=== PATIENT | male | born 1935 | race Caucasian/White ===

== ENCOUNTER 2018-11-12 13:04 | Inpatient (IN) | payer MEDICARE, OTHER ==
[~2018-11-12] VITALS: Ht 175.3 cm; Wt 90.7 kg
[~2018-11-12 13:04] MED LIST: CARVEDILOL3.125 MG ORAL; IBUPROFEN600 MG ORAL
--- NOTE | 2018-11-12 13:04 | NUR ---
ED Nurse Note: Patient brought in by ambulance from home due to unwitnessed fall/ syncope. patient presents with no obvious injury. Patient is alert/oriented x 3, confused. patient reports hx of DM, old stroke, dementia, but non-compliant with medications. patient's neighbor reports that patient uses cane at home, patient is forgetful. patient reports he has a caregiver that comes mostly everyday.
[2018-11-12 13:09] VITALS: BP 128/80
--- NOTE | 2018-11-12 13:14 | Emergency Room Report ---
History of Present Illness General Chief Complaint: Syncope Source: Patient, EMS Present Illness HPI Patient presents with reports of syncopal episode Patient himself is a poor historian does not recall how he was found on the floor does not recall feeling lightheaded A residential leasing manager of the facility that he lives in found the patient on the ground and presents were summoned patient denies any chest pain denies any vomiting or diarrhea History of present illness is limited secondary to the patient's mental status On further questioning he does report some discomfort to the right knee Allergies: Coded Allergies: No Known Allergies (Unverified , 11/12/18) Patient History Past Medical History: see triage record Pertinent Family History: none Reviewed Nursing Documentation: PMH: Agreed; PSxH: Agreed Nursing Documentation-PMH Past Medical History: No History, Except For Hx Cardiac Problems: Yes Hx Diabetes: Yes Hx Cerebrovascular Accident: Yes Review of Systems All Other Systems: limited - Other than the ones mentioned in the history of present illness all others are reviewed however they do stay limited due to the patient's mental status Physical Exam Vital Signs Date Time Temp Pulse Resp B/P (MAP) Pulse Ox O2 Delivery O2 Flow Rate FiO2 11/12/18 12:52 98.2 62 18 138/77 97 Room Air Sp02 EP Interpretation: reviewed, normal General Appearance: other - Appears disheveled Head: normocephalic, atraumatic Eyes: bilateral eye PERRL, bilateral eye EOMI ENT: hearing grossly normal, normal voice, dry mucus membranes Neck: supple, no meningismus Respiratory: no retraction, no accessory muscle use, crackles - Bilaterally Cardiovascular #1: regular rate, rhythm Gastrointestinal: non tender, soft, other - Soft reducible umbilical hernia Musculoskeletal: swelling - Right lower shimmery including the calf and ankle region, tenderness palpable to the ankle any as well Neurologic: responsive - Patient is oriented to his name, however is confused about the time of the date is unclear how he presented to the hospital Skin: other - Poor turgor, swelling to the right leg Lymphatic: no adenopathy Medical Decision Making Diagnostic Impression: Primary Impression: Syncope ER Course Patient is a fairly complex patient with multiple differential to consideration including but not limited to cardiac cardiopulmonary and vascular emergencies Patient appears somewhat disoriented Disheveled IV hydration is provided CT head and other imaging did not show any obvious acute pathology Patient at this time is admitted for further care Labs Test 11/12/18 13:30 11/12/18 18:00 11/13/18 06:44 White Blood Count 8.4 K/UL (4.8-10.8) 7.7 K/UL (4.8-10.8) Red Blood Count 4.43 M/UL (4.70-6.10) 4.06 M/UL (4.70-6.10) Hemoglobin 14.3 G/DL (14.2-18.0) 13.2 G/DL (14.2-18.0) Hematocrit 42.0 % (42.0-52.0) 38.5 % (42.0-52.0) Mean Corpuscular Volume 95 FL (80-99) 95 FL (80-99) Mean Corpuscular Hemoglobin 32.3 PG (27.0-31.0) 32.5 PG (27.0-31.0) Mean Corpuscular Hemoglobin Concent 34.2 G/DL (32.0-36.0) 34.3 G/DL (32.0-36.0) Red Cell Distribution Width 12.4 % (11.6-14.8) 12.6 % (11.6-14.8) Platelet Count 270 K/UL (150-450) 282 K/UL (150-450) Mean Platelet Volume 5.5 FL (6.5-10.1) 5.9 FL (6.5-10.1) Neutrophils (%) (Auto) 77.6 % (45.0-75.0) 78.0 % (45.0-75.0) Lymphocytes (%) (Auto) 13.5 % (20.0-45.0) 13.7 % (20.0-45.0) Monocytes (%) (Auto) 7.4 % (1.0-10.0) 6.1 % (1.0-10.0) Eosinophils (%) (Auto) 1.0 % (0.0-3.0) 1.5 % (0.0-3.0) Basophils (%) (Auto) 0.6 % (0.0-2.0) 0.6 % (0.0-2.0) Prothrombin Time 10.7 SEC (9.30-11.50) Prothromb Time International Ratio 1.0 (0.9-1.1) Activated Partial Thromboplast Time 27 SEC (23-33) Sodium Level 139 MMOL/L (136-145) 142 MMOL/L (136-145) Potassium Level 4.2 MMOL/L (3.5-5.1) 3.7 MMOL/L (3.5-5.1) Chloride Level 103 MMOL/L (98-107) 108 MMOL/L (98-107) Carbon Dioxide Level 23 MMOL/L (21-32) 25 MMOL/L (21-32) Anion Gap 13 mmol/L (5-15) 10 mmol/L (5-15) Blood Urea Nitrogen 29 mg/dL (7-18) 30 mg/dL (7-18) Creatinine 1.1 MG/DL (0.55-1.30) 1.1 MG/DL (0.55-1.30) Estimat Glomerular Filtration Rate mL/min (>60) mL/min (>60) Glucose Level 108 MG/DL (74-106) 141 MG/DL (74-106) Calcium Level 9.5 MG/DL (8.5-10.1) 9.1 MG/DL (8.5-10.1) Total Bilirubin 1.5 MG/DL (0.2-1.0) Direct Bilirubin 0.2 MG/DL (0.0-0.3) Aspartate Amino Transf (AST/SGOT) 30 U/L (15-37) Alanine Aminotransferase (ALT/SGPT) 14 U/L (12-78) Alkaline Phosphatase 91 U/L (46-116) Total Creatine Kinase 404 U/L (26-308) Creatine Kinase MB 3.0 NG/ML (0.0-3.6) Creatine Kinase MB Relative Index 0.7 Troponin I 0.000 ng/mL (0.000-0.056) Pro-B-Type Natriuretic Peptide 331 pg/mL (0-125) Total Protein 7.6 G/DL (6.4-8.2) Albumin 3.5 G/DL (3.4-5.0) Globulin 4.1 g/dL Albumin/Globulin Ratio 0.9 (1.0-2.7) Lipase 349 U/L (73-393) Urine Color Yellow Urine Appearance Clear Urine pH 5 (4.5-8.0) Urine Specific [place] 1.020 (1.005-1.035) Urine Protein 3+ (NEGATIVE) Urine Glucose (UA) Negative (NEGATIVE) Urine Ketones 3+ (NEGATIVE) Urine Blood Negative (NEGATIVE) Urine Nitrite Negative (NEGATIVE) Urine Bilirubin Negative (NEGATIVE) Urine Urobilinogen Normal MG/DL (0.0-1.0) Urine Leukocyte Esterase Negative (NEGATIVE) Urine RBC 0-2 /HPF (0 - 0) Urine WBC 0-2 /HPF (0 - 0) Urine Squamous Epithelial Cells None /LPF (NONE/OCC) Urine Bacteria Few /HPF (NONE) Triglycerides Level 122 MG/DL (30-150) Cholesterol Level 213 MG/DL (< 200) LDL Cholesterol 145 mg/dL (<100) HDL Cholesterol 50 MG/DL (40-60) Cholesterol/HDL Ratio 4.3 (3.3-4.4) Prostate Specific Antigen 1.20 ng/mL (0.13-4.0) Thyroid Stimulating Hormone (TSH) 1.013 uiU/mL (0.358-3.740) EKG Diagnostic Results Rate: normal Rhythm: NSR ST Segments: other - Nonspecific ST, T wave changes Rhythm Strip Diag. Results EP Interpretation: yes Rate: 60 Rhythm: NSR, no PVC's, no ectopy Chest X-Ray Diagnostic Results Chest X-Ray Diagnostic Results : Chest X-Ray Ordered: Yes # of Views/Limited/Complete: 1 View Indication: Other - syncope EP Interpretation: Yes Interpretation: no consolidation, no effusion, no pneumothorax, other - Tortuous aorta wiped mediastinum Impression: Other - Tortuous aorta, borderline enlarged mediastinum Electronically Signed by: Jose Funk, DO Other X-Ray Diagnostic Results Other X-Ray Diagnostic Results #1: X-Ray ordered: Right ankle # of Views/Limited Vs Complete: 3 View Indication: Pain EP Interpretation: Yes Other X-Ray Diagnostic Results #2: X-Ray ordered: Right knee # of Views/Limited Vs Complete: 3 View Indication: Pain EP Interpretation: Yes CT/MRI/US Diagnostic Results CT/MRI/US Diagnostic Results : Impression CT headImpression: Chronic and age-related changes, as described Negative for acute intracranial bleed or mass effect Last Vital Signs Date Time Temp Pulse Resp B/P (MAP) Pulse Ox O2 Delivery O2 Flow Rate FiO2 11/12/18 12:52 98.2 62 18 138/77 97 Room Air Status: improved Disposition: ADMITTED INPATIENT Condition: Serious Jose Funk DO Nov 12, 2018 13:14
[2018-11-12 13:44] LABS: BASOPHILS % (AUTO) 0.6 % (0.0-2.0); HEMOGLOBIN 14.3 G/DL (14.2-18.0); LYMPHOCYTES % (AUTO) 13.5 % (20.0-45.0); MEAN CORPUSCULAR VOLUME 95 FL (80-99); MONOCYTES % (AUTO) 7.4 % (1.0-10.0); NEUTROPHILS % (AUTO) 77.6 % (45.0-75.0); PLATELET COUNT 270 K/UL (150-450); RED BLOOD COUNT 4.43 M/UL (4.70-6.10); RED CELL DISTRIBUTION WIDTH 12.4 % (11.6-14.8); WHITE BLOOD COUNT 8.4 K/UL (4.8-10.8)
[2018-11-12 14:01] LABS: ANION GAP 13 mmol/L (5-15); BLOOD UREA NITROGEN 29 mg/dL (7-18); CALCIUM 9.5 MG/DL (8.5-10.1); CARBON DIOXIDE 23 MMOL/L (21-32); CHLORIDE 103 MMOL/L (98-107); CREATININE 1.1 MG/DL (0.55-1.30); POTASSIUM 4.2 MMOL/L (3.5-5.1); SODIUM 139 MMOL/L (136-145)
[2018-11-12 14:14] LABS: ALANINE AMINOTRANSFERASE 14 U/L (12-78); ALBUMIN 3.5 G/DL (3.4-5.0); ALBUMIN/GLOBULIN RATIO 0.9 (1.0-2.7); ALKALINE PHOSPHATASE 91 U/L (46-116); ASPARTATE AMINO TRANSFERASE 30 U/L (15-37); BILIRUBIN,DIRECT 0.2 MG/DL (0.0-0.3); BILIRUBIN,TOTAL 1.5 MG/DL (0.2-1.0); CREATINE KINASE 404 U/L (26-308)
--- NOTE | 2018-11-12 14:25 | NUR ---
ED Nurse Note: patient went down for CT
--- NOTE | 2018-11-12 14:43 | Diagnostic Imaging Report ---
Indication: Pain, trauma Technique: One view of the pelvis Comparison: none Findings: No definite acute fractures or dislocations. The right femoral neck is not well-visualized, however. There is degenerative narrowing of the right hip joint space. Left hip joint space is preserved. There are degenerative changes of the lumbosacral junction and of the bilateral sacroiliac joints. Impression: No definite acute bony trauma. However, right hip is not well-visualized, and dedicated hip radiograph should be considered if clinically concerned. Note that in elderly osteoporotic patients, nondisplaced hip and pelvic fractures can easily be occult and cross-sectional imaging should be considered if there is high clinical suspicion Degenerative changes, as described.
--- NOTE | 2018-11-12 14:47 | NUR ---
ED Nurse Note: educated patient that urine sample is needed, patient verbalised understanding.
--- NOTE | 2018-11-12 14:56 | Diagnostic Imaging Report ---
Indication: Pain, trauma Technique: 3 views of the right ankle Comparison: none Findings: There is severe degenerative narrowing of the ankle joint. No acute fractures. No dislocations. There is evidence of plain is deformity. There are fairly extensive soft tissue calcifications noted. Impression: Degenerative changes as described. No definite acute bony trauma
--- NOTE | 2018-11-12 14:57 | Diagnostic Imaging Report ---
Indication: Chest pain, trauma Technique: One view of the chest Comparison: 10/18/2009 Findings: The lungs and pleural spaces are clear. The heart size is upper limits normal. The aorta is tortuous and calcified. There is no significant interim change Impression: No acute process
--- NOTE | 2018-11-12 14:59 | Diagnostic Imaging Report ---
Indication: Right knee pain Technique: 3 views of the right knee Comparison: None Findings: There is degenerative narrowing of the medial lateral joint compartments no acute fractures. No dislocations. No suprapatellar effusion. There are vascular calcifications Impression: Degenerative changes. No acute bony trauma
--- NOTE | 2018-11-12 15:01 | Diagnostic Imaging Report ---
Indications: Syncopal episode, head trauma Technique: Spiral acquisitions obtained through the brain. Angled axial and coronal 5 x 5 mm slices were reconstructed. Total dose length product 1404.24 mGycm. CTDI vol(s) 70.38 mGy. Dose reduction achieved using automated exposure control Comparison: Brain MRI dated 10/18/2009. No prior brain CTs Findings: There is age-related enlargement of the ventricles and extra axial CSF spaces. There is periventricular deep white matter low-attenuation, consistent with chronic deep white matter ischemic change. No acute intracranial hemorrhage or edema, mass effect, nor midline shift. Otherwise normal pelayo-white differentiation. There is minimal right maxillary sinus mucosal disease. There is evidence of bilateral sinus surgery. Mucosal disease is also seen within the ethmoid sinuses, and there is a polyp versus mucous retention cyst in the left sphenoid sinus. There is evidence of prior bilateral cataract surgery. The calvarium is intact. The mastoids are clear Impression: Chronic and age-related changes, as described Negative for acute intracranial bleed or mass effect The CT scanner at [facility] is accredited by the [employer] and the scans are performed using protocols designed to limit radiation exposure to as low as reasonably achievable to attain images of sufficient resolution adequate for diagnostic evaluation.
--- NOTE | 2018-11-12 15:11 | History & Physical ---
History and Physical History & Physicial dict syncope found down, unknown duration, mild rhabdomyolysis HTN CKD 2 borderline DM, diet controlled mild dementia ANNE morbid obesity OA L side weakness due to hx CVA NKA plan: tele troponins echo CDS PT eval placement or multimedia teacher help Robbie Mccall MD Nov 12, 2018 15:11
--- NOTE | 2018-11-12 15:19 | NUR ---
ED Nurse Note: Dr. Montilla ok for the patient to go up without giving urine sample at this time, patient is not voiding and refused straight cath.
--- NOTE | 2018-11-12 15:45 | NUR ---
ED Nurse Note: report given to Melchor MARTÍNEZ
--- NOTE | 2018-11-12 16:19 | NUR ---
ED Nurse Note: Endorsed Melchor that patient's UA needs to be collected
--- NOTE | 2018-11-12 16:20 | NUR ---
ED Nurse Note: patient was transferred to with all his belongings, endorsed to Melchor MARTÍNEZ.
--- NOTE | 2018-11-12 16:57 | NUR ---
NURSE NOTES: RECEIVED PT AWAKE ALERT, AOX2, FORGETFUL, [facility] HEALED SCAR CALLED AND SPOKE W DR GREGORIO, RECEIVED ADMISSION ORDERS, ENTERED. MD MADE AWARE OF SYSTOLIC , NO NEW ORDER JUST MONITOR FOR NOW. BED IN LOWEST POSITION, LOCKED. WALLET TAKEN HOME BY STUART EMMANUEL
--- NOTE | 2018-11-12 18:00 | History and Physical Report ---
DATE OF ADMISSION: 11/12/2018 CHIEF COMPLAINT: Syncope. HISTORY OF PRESENT ILLNESS: The patient apparently was found down by his operations manager. He has no recollection of falling and does not recall how long he was on the floor. He has no complaints of chest pain or shortness of breath. He has no palpitations or headache. He has no discomfort other than some knee and ankle pain due to chronic arthritis. PAST MEDICAL HISTORY: The records at [facility] were reviewed. The patient is a poor historian. He has a history of borderline hypertension, borderline diabetes, mild chronic kidney disease, mild dementia, sleep apnea, not on treatment, morbid obesity, and anemia. He is felt by his primary physician and family to be not competent to make decisions, but the family has refused to place him in assisted living and the patient has refused. MEDICATIONS: Plavix. He does not use CPAP. ALLERGIES: None. SOCIAL HISTORY: He is a past smoker. He does not drink excessively or use illicit drugs. He lives independently and has a part-time caregiver and friends in his apartment building. REVIEW OF SYSTEMS: He is overweight. He had skin cancer in the past. He has no history of cardiac disease. He had a past stroke many years ago with mild left-sided weakness. He has no shortness of breath or chest pain. He has no nausea, vomiting, or diarrhea. PHYSICAL EXAMINATION: GENERAL: The patient is alert and responds appropriately. He is oriented to place. He thought the date was November 2083. He knows the President and knows why he is here. HEENT: The head is normocephalic with no signs of trauma. NECK: No jugular vein distention or lymphadenopathy. The carotids are 2+ without bruit. CARDIAC: Rhythm is regular without murmur or gallop. ABDOMEN: Soft and nontender. Liver and spleen are not enlarged. EXTREMITIES: No clubbing, cyanosis, or edema. NEUROLOGIC: He is able to move all extremities, although there is mild left-sided weakness and generalized weakness is noted. Cranial nerves are intact. LABORATORY AND DIAGNOSTIC DATA: Laboratory studies are reviewed. IMPRESSIONS: 1. Syncope. 2. Mild rhabdomyolysis. 3. History of hypertension, now normotensive. 4. Mild CKD stage 2. 5. Borderline diabetes, diet controlled. 6. Mild dementia. 7. Sleep apnea, not on treatment. 8. Morbid obesity. 9. Osteoarthritis. 10. History of stroke with left-sided weakness. PLAN: 1. The patient will be admitted to telemetry. 2. We will check serial troponins and echocardiogram and carotid duplex. 3. Physical therapy will evaluate him. 4. He likely will require placement in assisted living or a full-time help at home. Robbie Mccall M.D. DR: LINSEY JOB#: [id number] CC: Robbie Mccall M.D.; Fax#: [phone]
[2018-11-12 19:11] LABS: APPEARANCE,URINE CLEAR; BILIRUBIN, URINE NEGATIVE (NEGATIVE); COLOR,URINE YELLOW; GLUCOSE, URINE (UA) NEGATIVE (NEGATIVE); KETONES,URINE 3+ (NEGATIVE); LEUKOCYTE ESTERASE ,URINE NEGATIVE (NEGATIVE); NITRITE,URINE NEGATIVE (NEGATIVE); PH,URINE 5 (4.5-8.0); PROTEIN,URINE 3+ (NEGATIVE); UROBILINOGEN,URINE NORMAL MG/DL (0.0-1.0)
--- NOTE | 2018-11-12 19:14 | NUR ---
HAND-OFF: Report given to SHABANA MARTÍNEZ.
--- NOTE | 2018-11-12 19:15 | NUR ---
NURSE NOTES: UA SPECIMEN SENT TO LAB
--- NOTE | 2018-11-12 19:45 | NUR ---
NURSE NOTES received pt from day shift nurse. pt sleeping with no acute distress. safety precautions in place. will continue to monitor.
[2018-11-12 20:00] VITALS: BP 127/73
[2018-11-13] VITALS: BP 136/71
--- NOTE | 2018-11-13 | NUR ---
pt watching tv no c/o pain at this time. will continue to monitor
[2018-11-13 04:00] VITALS: BP 115/69
--- NOTE | 2018-11-13 06:54 | NUR ---
NURSE NOTES: pt in stable condition, no acute distress during my shift all needs met during my shift will endorse to incoming nurse.
--- NOTE | 2018-11-13 07:20 | NUR ---
NURSE NOTES: RECEIVED PT RESTING IN BED QUIETLY AWAKE AND ALERT DENIES CP OR ANY DISCOMFORT AT THIS TIME.FULL BODY ASSESSMENT DONE.NO ACUTE DISTRESS NOTED AT THIS TIME.WILL CONT TO MONITOR.
[2018-11-13 07:39] LABS: BASOPHILS % (AUTO) 0.6 % (0.0-2.0); EOSINOPHILS % (AUTO) 1.5 % (0.0-3.0); HEMATOCRIT 38.5 % (42.0-52.0); HEMOGLOBIN 13.2 G/DL (14.2-18.0); LYMPHOCYTES % (AUTO) 13.7 % (20.0-45.0); MEAN CORPUSCULAR VOLUME 95 FL (80-99); MONOCYTES % (AUTO) 6.1 % (1.0-10.0); PLATELET COUNT 282 K/UL (150-450); RED BLOOD COUNT 4.06 M/UL (4.70-6.10); RED CELL DISTRIBUTION WIDTH 12.6 % (11.6-14.8); WHITE BLOOD COUNT 7.7 K/UL (4.8-10.8)
--- NOTE | 2018-11-13 07:41 | NUR ---
HAND-OFF: Report given to Cecil MARTÍNEZ.
[2018-11-13 08:00] VITALS: BP 136/68
[2018-11-13 08:28] LABS: ANION GAP 10 mmol/L (5-15); BLOOD UREA NITROGEN 30 mg/dL (7-18); CALCIUM 9.1 MG/DL (8.5-10.1); CARBON DIOXIDE 25 MMOL/L (21-32); CHLORIDE 108 MMOL/L (98-107); CHOLESTEROL 213 MG/DL (< 200); CREATININE 1.1 MG/DL (0.55-1.30); HDL CHOLESTEROL 50 MG/DL (40-60); POTASSIUM 3.7 MMOL/L (3.5-5.1); SODIUM 142 MMOL/L (136-145); TRIGLYCERIDES 122 MG/DL (30-150)
--- NOTE | 2018-11-13 11:10 | NUR ---
*-* INSURANCE *-* AVAILABLE CLINICALS HAVE BEEN FAXED TO: IPA: [facility] AUTH#: PND NATIVIDADM: HERBIE Edge#: [phone] F#: [phone] PLEASE FAX CLINICALS TO ABOVE
[2018-11-13 12:00] VITALS: BP 130/81
--- NOTE | 2018-11-13 12:42 | General Progress Note ---
Assessment/Plan Assessment/Plan 1. Syncope. 2. Mild rhabdomyolysis. 3. History of hypertension, now normotensive. 4. Mild CKD stage 2. 5. Borderline diabetes, diet controlled. 6. Mild dementia. 7. Sleep apnea, not on treatment. 8. Morbid obesity. 9. Osteoarthritis. 10. History of stroke with left-sided weakness. PLAN: does not recall meeting me yesterday alert carotids ok echo pdg trop neg await PT eval disc w son - not safe at home without 24 hr care rec conservatorship dc plan to snf vs asst living or 24 hr CG requested soc service consult Subjective Constitutional: Reports: no symptoms Allergies: Coded Allergies: No Known Allergies (Unverified , 11/12/18) Objective Last 24 Hour Vital Signs Date Time Temp Pulse Resp B/P (MAP) Pulse Ox O2 Delivery O2 Flow Rate FiO2 11/13/18 12:00 97.7 66 18 130/81 (97) 97 11/13/18 09:13 86 136/80 11/13/18 09:00 Nasal Cannula 2.0 11/13/18 08:00 73 11/13/18 08:00 98.1 89 20 136/68 (90) 95 11/13/18 04:00 83 11/13/18 04:00 98.2 69 18 115/69 (84) 100 11/13/18 00:00 97.2 68 20 136/71 (92) 96 11/13/18 00:00 80 11/12/18 21:29 96 127/73 11/12/18 21:00 Nasal Cannula 2.0 11/12/18 20:00 97.8 71 20 127/73 (91) 98 11/12/18 20:00 92 11/12/18 18:31 98.2 62 17 128/80 97 Room Air 11/12/18 16:52 Room Air 11/12/18 16:34 59 11/12/18 13:09 98.2 62 17 128/80 97 Room Air 11/12/18 12:52 98.2 62 18 138/77 97 Room Air Intake and Output 11/12/18 11/13/18 19:00 07:00 Intake Total 500 ml Output Total 0 ml 750 ml Balance 0 ml -250 ml Intake Oral 500 ml Output Urine Total 0 ml 750 ml Laboratory Tests 11/12/18 13:30: White Blood Count 8.4, Red Blood Count 4.43L, Hemoglobin 14.3, Hematocrit 42.0, Mean Corpuscular Volume 95, Mean Corpuscular Hemoglobin 32.3H, Mean Corpuscular Hemoglobin Concent 34.2, Red Cell Distribution Width 12.4, Platelet Count 270, Mean Platelet Volume 5.5L, Neutrophils (%) (Auto) 77.6H, Lymphocytes (%) (Auto) 13.5L, Monocytes (%) (Auto) 7.4, Eosinophils (%) (Auto) 1.0, Basophils (%) (Auto ) 0.6, Prothrombin Time 10.7, Prothromb Time International Ratio 1.0, Activated Partial Thromboplast Time 27, Sodium Level 139, Potassium Level 4.2, Chloride Level 103, Carbon Dioxide Level 23, Anion Gap 13, Blood Urea Nitrogen 29H, Creatinine 1.1, Estimat Glomerular Filtration Rate , Glucose Level 108H, Calcium Level 9.5, Total Bilirubin 1.5H, Direct Bilirubin 0.2, Aspartate Amino Transf (AST/SGOT) 30, Alanine Aminotransferase (ALT/SGPT) 14, Alkaline Phosphatase 91, Total Creatine Kinase 404H, Creatine Kinase MB 3.0, Creatine Kinase MB Relative Index 0.7, Troponin I 0.000, Pro-B-Type Natriuretic Peptide 331H, Total Protein 7.6, Albumin 3.5, Globulin 4.1, Albumin/Globulin Ratio 0.9L , Lipase 349 11/12/18 18:00: Urine Color Yellow, Urine Appearance Clear, Urine pH 5, Urine Specific [place] 1.020, Urine Protein 3+H, Urine Glucose (UA) Negative, Urine Ketones 3+H, Urine Blood Negative, Urine Nitrite Negative, Urine Bilirubin Negative, Urine Urobilinogen Normal, Urine Leukocyte Esterase Negative, Urine RBC 0-2H, Urine WBC 0-2, Urine Squamous Epithelial Cells None, Urine Bacteria Few 11/13/18 06:44: White Blood Count 7.7, Red Blood Count 4.06L, Hemoglobin 13.2L, Hematocrit 38.5L , Mean Corpuscular Volume 95, Mean Corpuscular Hemoglobin 32.5H, Mean Corpuscular Hemoglobin Concent 34.3, Red Cell Distribution Width 12.6, Platelet Count 282, Mean Platelet Volume 5.9L, Neutrophils (%) (Auto) 78.0H, Lymphocytes (%) (Auto) 13.7L, Monocytes (%) (Auto) 6.1, Eosinophils (%) (Auto) 1.5, Basophils (%) (Auto) 0.6, Sodium Level 142, Potassium Level 3.7, Chloride Level 108H, Carbon Dioxide Level 25, Anion Gap 10, Blood Urea Nitrogen 30H, Creatinine 1.1, Estimat Glomerular Filtration Rate , Glucose Level 141H, Calcium Level 9.1, Triglycerides Level 122, Cholesterol Level 213H, LDL Cholesterol 145H, HDL Cholesterol 50, Cholesterol/HDL Ratio 4.3, Prostate Specific Antigen 1.20, Thyroid Stimulating Hormone (TSH) 1.013 Height (Feet): 5 Height (Inches): 9.00 Weight (Pounds): 200 General Appearance: no apparent distress, overweight Neck: supple Cardiovascular: normal rate Respiratory/Chest: lungs clear Neurologic: no motor/sensory deficits, alert, other - poor memory Robbie Mccall MD Nov 13, 2018 12:42
--- NOTE | 2018-11-13 13:57 | NUR ---
CASE MANAGEMENT:REVIEW 83 YR OLD MALE BIBA FROM HOME CC; UNWITNESSED FALL. PATIENT WOKE UP LYING ON THE FLOOR SI: SYNCOPE 98.3 62 18 138/77 97% ON RA BUN+29 GLUCOSE+108 TCK+404 IS: 500CC NS BOLUS X1 XRAY KNEE,ANKLE,FEMUR, PELVIS AND CHEST CT HEAD : TO TELEMETRY PLAN: 2DECHO CAROTID DUPLEX PT EVAL INTERQUAL CRITERIA MET
--- NOTE | 2018-11-13 14:28 | Cardiology Report ---
APPROVED REPORT EXAM: Two-dimensional and M-mode echocardiogram with Doppler and color Doppler. INDICATION SYNCOPE M-Mode DIMENSIONS IVSd1.2 (0.7-1.1cm)Left Atrium (MM)4.0 (1.6-4.0cm) LVDd5.2 (3.5-5.6cm)Aortic Root4.3 (2.0-3.7cm) PWd1.2 (0.7-1.1cm)Aortic Cusp Exc.1.9 (1.5-2.0cm) IVSs1.8 cm LVDs3.1 (2.5-4.0cm) PWs0.9 cm Technically difficult study due to poor acoustical windows. Normal left ventricular chamber size, systolic function and wall motion to extent visualized. Left ventricular ejection fraction estimated to be 55-60 %. No evidence of left ventricular hypertrophy. No evidence of pericardial effusion. All other cardiac chamber sizes are within normal limits. Focal aortic valve sclerosis with adequate cusp excursion. Thickened mitral valve leaflets with normal excursion. Mitral annulus and aortic root calcification. Pulmonic valve not well visualized. Normal tricuspid valve structure. IVC dilated at 2.3 cm with physiologic collapse. A color flow and spectral Doppler study was performed and revealed: Mild aortic regurgitation. Mild mitral regurgitation. Mitral diastolic velocities suggest reduced left ventricular relaxation c/w mild LV diastolic dysfunction (Grade I ) Mild tricuspid regurgitation. Tricuspid systolic velocities suggests peak right ventricular systolic pressure of 35mmHg.
--- NOTE | 2018-11-13 14:58 | NUR ---
NURSE NOTES: Patients son called and requested patient to be transferred to [facility] upon discharge. fraud manager and MD informed.
--- NOTE | 2018-11-13 15:15 | Cardiology Report ---
APPROVED REPORT EKG Measurement Heart [id number] Sinus rhythm with 1st degree AV block Left anterior fascicular block Abnormal ECG
--- NOTE | 2018-11-13 15:21 | Cardiology Report ---
APPROVED REPORT EKG Measurement Heart [id number] NM [id number] Sinus rhythm with 1st degree AV block Left anterior fascicular block Abnormal ECG
[2018-11-13 16:00] VITALS: BP 134/76
--- NOTE | 2018-11-13 16:53 | NUR ---
Social Service Note Patient's son called nursing station and provided his contact information Kevin Flaherty [phone]. Son also indicated to nurse upon discharge patient should be referred to [facility]. SW left a message for son. Awaiting return call. Kelly caregiver [phone] Erin Niece [phone]
--- NOTE | 2018-11-13 19:10 | NUR ---
HAND-OFF: Report given to .PAM MARTÍNEZ.
--- NOTE | 2018-11-13 19:30 | NUR ---
NURSE NOTES: Report received from Cecil Sánchez RN. Pt is sitting up at bedside in stable condition. Pt is awake, alert, and oriented x3. Pt is on room air and breathing is even and unlabored. No acute distress noted. IV site is R FA #20g and is asymptomatic, patent, and intact. Bed is placed in lowest position with brake engaged, side rails up x3, and bed alarm on. Call light and side table placed within reach. Will continue to monitor.
[2018-11-13 20:00] VITALS: BP 125/66
[2018-11-13] MEDS ORDERED: Atorvastatin 20mg tab ORAL SCH (21:00)
[2018-11-14] VITALS: BP 126/78
[2018-11-14 04:00] VITALS: BP 126/75
--- NOTE | 2018-11-14 06:00 | NUR ---
NURSE NOTES: Pt presented this morning with diffuse red, raised rash mostly on torso but also noted on arms and leg. Pt complaining of feeling slightly itchy but otherwise in stable condition. VSS. Pt denies any known allergies and no allergies listed in chart. MD Mccall notified of new onset of rash. Per MD Mccall, stop lipitor and order Benadryl 25mg PO TID PRN for itching. Orders noted and carried out. Will continue to monitor patient.
--- NOTE | 2018-11-14 07:15 | NUR ---
NURSE NOTES: received patient report from marilyn lane. patient is on bed awake. not in acute distress. noted scattered rashes on the abdomen. dr kramer is aware, lipitor was ordered to stop.fist dose of benadryl was given.aox3 period of confusion and forgetfulness.bed is low and locked for safety. will continue to monitor.
--- NOTE | 2018-11-14 07:41 | NUR ---
HAND-OFF: Report given to Vibha MARTÍNEZ. Pt is siting up at bedside in stable condition. No acute distress noted. Endorsed plan of care.
[2018-11-14 08:00] VITALS: BP 136/72
--- NOTE | 2018-11-14 09:15 | NUR ---
PT EVALUATION NOTE Patient seen for initial evaluation, see complete evaluation for details. Patient presents with generalized weakness, impaired balance and impaired functional mobility. Patient will benefit from skilled inpatient PT intervention to address strength, balance, safety and functional mobility. Recommend discharge to SNF vs home with 24 hour care once cleared by MD. Patient has 4 wheeled walker at home, may benefit from shower chair for safety.
[2018-11-14 12:00] VITALS: BP 143/88
--- NOTE | 2018-11-14 14:13 | Diagnostic Imaging Report ---
APPROVED REPORT CPT Code: 07742 Vascular Symptoms Syncope Doppler Spectral Velocity Analysis RightLeft BILATERAL: CCA/BULB - Imaging reveals irregular, minimal plaque in both carotid bulbs. arteries. The Doppler spectral flow analysis is within normal limits throughout the internal and external carotid arteries. VERTEBRAL/SUBCLAVIAN- The left vertebral artery and both subclavian arteries are within normal limits. The right vertebral artery was not well visualized.
--- NOTE | 2018-11-14 15:40 | General Progress Note ---
Assessment/Plan Assessment/Plan 1. Syncope. 2. Mild rhabdomyolysis. 3. History of hypertension, now normotensive. 4. Mild CKD stage 2. 5. Borderline diabetes, diet controlled. 6. Mild dementia. 7. Sleep apnea, not on treatment. 8. Morbid obesity. 9. Osteoarthritis. 10. History of stroke with left-sided weakness. PLAN: does not recall meeting me echo diast dysfcn await PT rec dc snf dc to snf when bed avail Subjective Constitutional: Reports: no symptoms Allergies: Coded Allergies: No Known Allergies (Unverified , 11/12/18) Objective Last 24 Hour Vital Signs Date Time Temp Pulse Resp B/P (MAP) Pulse Ox O2 Delivery O2 Flow Rate FiO2 11/14/18 12:00 66 11/14/18 12:00 97.3 67 18 143/88 (106) 94 11/14/18 09:00 Nasal Cannula 2.0 11/14/18 08:22 77 115/67 11/14/18 08:00 98.1 80 20 136/72 (93) 94 11/14/18 08:00 66 11/14/18 04:00 59 11/14/18 04:00 98.7 62 20 126/75 (92) 99 11/14/18 00:00 98.6 64 22 126/78 (94) 94 11/14/18 00:00 61 11/13/18 21:26 98.6 11/13/18 21:00 Nasal Cannula 2.0 11/13/18 20:56 65 125/66 11/13/18 20:00 71 11/13/18 20:00 100.5 65 22 125/66 (85) 94 11/13/18 16:00 67 11/13/18 16:00 97.6 67 19 134/76 (95) 96 Intake and Output 11/13/18 11/14/18 19:00 07:00 Intake Total 720 ml 360 ml Output Total 300 ml 500 ml Balance 420 ml -140 ml Intake Oral 720 ml 360 ml Output Urine Total 300 ml 500 ml # Voids 1 2 Height (Feet): 5 Height (Inches): 9.00 Weight (Pounds): 200 General Appearance: no apparent distress Neck: supple Cardiovascular: normal rate Respiratory/Chest: lungs clear Skin: rash - petechiae Robbie Mccall MD Nov 14, 2018 15:40
--- NOTE | 2018-11-14 15:55 | NUR ---
CASE MANAGEMENT:REVIEW 11/14/18 SI:SYNCOPE. MILD RHABDOMYOLYSIS 97.3 67 18 143/88 94% ON 2L/NC IS: PRAVACHOL PO QHS PLAVIX PO QD COREG PO Q12 TYLENOL PO Q4HRS PRN : TELEMETRY STATUS DCP: PATIENT IS FROM HOME BUT WILL NEED SNF PLACEMENT
[2018-11-14 16:00] VITALS: BP 136/79
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
--- NOTE | 2018-11-14 19:19 | NUR ---
HAND-OFF: Report given to marilyn lane.
--- NOTE | 2018-11-14 19:32 | NUR ---
NURSE NOTES: Report received from Vibha MARTÍNEZ. Pt is sitting up in chair at bedside in stable condition. Pt is awake, alert, and oriented x3 with noted confusion/forgetfulness. Pt is on room air and breathing is even and unlabored. No acute distress noted. IV site noted to be asymptomatic, patent, and intact. Pt denies itchiness. No rash noted at this time. Bed is placed in lowest position with brake engaged, side rails up x2. Call light and side table are placed within reach. Will continue to monitor.
[2018-11-14 20:00] VITALS: BP 140/90
[2018-11-15] VITALS: BP 145/56
--- NOTE | 2018-11-15 01:24 | NUR ---
NURSE NOTES: Raised, red rash noted to appear on genital area as well as lower abdomen. No rash noted on upper abdomen, chest, or back at this time. Pt reports feeling "itchy" at this time. No acute distress noted. VSS, afebrile. Benadryl administered per PRN orders. Will notify MD Mccall and continue to monitor patient.
[2018-11-15 04:00] VITALS: BP 149/93
--- NOTE | 2018-11-15 07:32 | NUR ---
NURSE NOTES: Received bedside report from Amber MARTÍNEZ. Pt. in bed, asleep but arousable. No sign of distress. No grimacing noted. IV site at right FA #20g. SL. Bed in low position, locked, bed alarm on. Call light within reach. Will cont. to monitor.
--- NOTE | 2018-11-15 07:32 | NUR ---
HAND-OFF: Report given to India MARTÍNEZ. Pt is sleeping in bed in stable condition. No acute distress noted. Endorsed plan of care.
[2018-11-15 08:00] VITALS: BP 124/82
--- NOTE | 2018-11-15 08:57 | General Progress Note ---
Assessment/Plan Assessment/Plan 1. Syncope. 2. Mild rhabdomyolysis. 3. History of hypertension, now normotensive. 4. Mild CKD stage 2. 5. Borderline diabetes, diet controlled. 6. Mild dementia. 7. Sleep apnea, not on treatment. 8. Morbid obesity. 9. Osteoarthritis. 10. History of stroke with left-sided weakness. PLAN: ambulates 30 feet disc w PT dc to snf when bed avail Subjective Constitutional: Reports: no symptoms Allergies: Coded Allergies: No Known Allergies (Unverified , 11/12/18) Objective Last 24 Hour Vital Signs Date Time Temp Pulse Resp B/P (MAP) Pulse Ox O2 Delivery O2 Flow Rate FiO2 11/15/18 08:00 97.8 68 18 124/82 (96) 94 11/15/18 04:00 97.2 68 20 149/93 (111) 96 11/15/18 04:00 71 11/15/18 00:00 98.5 64 20 145/56 (85) 95 11/15/18 00:00 65 11/14/18 21:10 68 140/90 11/14/18 21:00 Nasal Cannula 2.0 11/14/18 20:00 97.4 68 20 140/90 (107) 94 11/14/18 20:00 71 11/14/18 16:00 70 11/14/18 16:00 97.2 71 20 136/79 (98) 95 11/14/18 12:00 66 11/14/18 12:00 97.3 67 18 143/88 (106) 94 11/14/18 09:00 Nasal Cannula 2.0 Intake and Output 11/14/18 11/15/18 19:00 07:00 Intake Total 360 ml Output Total 950 ml Balance -590 ml Intake Oral 360 ml Output Urine Total 950 ml Height (Feet): 5 Height (Inches): 9.00 Weight (Pounds): 200 General Appearance: no apparent distress, confused Robbie Mccall MD Nov 15, 2018 08:57
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
--- NOTE | 2018-11-15 10:43 | NUR ---
*-* INSURANCE *-* UPDATED CLINICALS, REVIEW AND INTERQUAL HAVE BEEN FAXED: IPA: [facility] AUTH#: [id number] SIDDHARTH: HERBIE Edge#: [id number] F#: [phone]
--- NOTE | 2018-11-15 11:38 | NUR ---
Social Service Note SW spoke with [facility]'s ambulatory family preservation caseworker Kaila Emily [phone] and provided update. Kaila will continue to follow up with patient in conjunction with JFS and APS.
[2018-11-15 11:51] VITALS: BP 123/71
--- NOTE | 2018-11-15 12:33 | NUR ---
Social Service Note Patient accepted at [facility] [phone], skilled care to room 18B. Nurse to call report prior to transfer. [facility] [phone] Auth#[id number]. ARYAN informed patient's son Kevin [phone] and provided facility's address and contact number. Son is in agreement with dc plan.
--- NOTE | 2018-11-15 12:50 | NUR ---
NURSE NOTES: Emmett Flaherty #[phone] niece of the patient informed her regarding the discharge to SNF.
--- NOTE | 2018-11-15 13:00 | NUR ---
NURSE NOTES: Called [facility]) [phone] and spoke to Deborah MARTÍNEZ for report.
--- NOTE | 2018-11-15 14:52 | NUR ---
Homeless Discharge: Patient is being discharged to [facility] from medical care. Awake, alert and oriented x3 but forgetful and confused. All medical devices such as IV, environmental monitoring specialist and ID band were removed. Patient wheeled out with all personal belongings by S transportation.
--- NOTE | 2018-11-15 15:16 | Consultation ---
History of Present Illness General Chief Complaint: Syncope Present Illness HPI patient apparently was found down by his credit office manager. He has no recollection of falling and does not recall how long he was on the floor. hypertension, borderline diabetes, mild chronic kidney disease, mild dementia, sleep apnea, not on treatment, morbid obesity, and anemia. Allergies: Coded Allergies: No Known Allergies (Unverified , 11/12/18) Medication History Scheduled Carvedilol* (Carvedilol*), MG ORAL EVERY 12 HOURS, (Reported) Ibuprofen* (Motrin*), MG ORAL FOUR TIMES A DAY, (Reported) Patient History Healthcare decision maker Resuscitation status Full Code Advanced Directive on File Physical Exam Last 24 Hour Vital Signs Date Time Temp Pulse Resp B/P (MAP) Pulse Ox O2 Delivery O2 Flow Rate FiO2 11/15/18 11:51 97.9 62 18 123/71 (88) 94 11/15/18 11:50 62 11/15/18 09:46 68 124/82 11/15/18 09:00 Room Air 11/15/18 08:00 97.8 68 18 124/82 (96) 94 11/15/18 07:56 62 11/15/18 04:00 97.2 68 20 149/93 (111) 96 11/15/18 04:00 71 11/15/18 00:00 98.5 64 20 145/56 (85) 95 11/15/18 00:00 65 11/14/18 21:10 68 140/90 11/14/18 21:00 Nasal Cannula 2.0 11/14/18 20:00 97.4 68 20 140/90 (107) 94 11/14/18 20:00 71 11/14/18 16:00 70 11/14/18 16:00 97.2 71 20 136/79 (98) 95 Intake and Output 11/14/18 11/15/18 19:00 07:00 Intake Total 360 ml Output Total 950 ml Balance -590 ml Intake Oral 360 ml Output Urine Total 950 ml Height (Feet): 5 Height (Inches): 9.00 Weight (Pounds): 200 Julia Harrison MD Nov 15, 2018 15:16
--- NOTE | 2018-11-16 14:56 | Discharge Summary ---
Discharge Summary Discharge Summary _ DATE OF ADMISSION: 11/12/2018 DATE OF DISCHARGE: 11/15/2018 DISCHARGED BY: Dr. Mccall REASON FOR ADMISSION: 82 years old male with past medical history of borderline hypertension, borderline diabetes, mild chronic kidney disease, mild dementia, sleep apnea, not on treatment, morbid obesit, history of CVA, anemia, was found by his bench manager on the floor. Patient had no recollection of falling and did not recall how long he was on the floor. He did not complain of chest pain or shortness of breath. He denied palpitations or headache. He had no discomfort, other than right knee and ankle pain due to chronic arthritis. His primary physician and family felt that he was not competent to make decisions. Upon evaluation in the emergency department CT of the head revealed no acute intracranial pathology , but showed chronic age-related changes. Pelvis x-ray revealed degenerative changes, no evidence of fracture. X-ray of the right knee revealed degenerative changes , no acute bony trauma. Chest x-ray showed no acute cardiopulmonary pathology. Laboratory workup revealed no leukocytosis , stable hemoglobin and hematocrit. BUN 29 ,creatinine 1.1. Glucose 108. Albumin 3.5. CK 404. Troponin negative. EKG revealed normal sinus rhythm, no acute ischemic changes. Urinalysis revealed no evidence of UTI. [facility] CONSULTANTS: psychiatrist [facility]: Patient admitted to telemetry floor. Troponin was negative. Echocardiogram revealed preserved ejection fraction of 55-60%. No evidence of left ventricular hypertrophy. No evidence of wall motion abnormality. Grade 1 diastolic dysfunction. Right ventricular systolic pressure of 35. Carotid duplex was unremarkable. Patient was working with physical therapist. Fall precautions were maintained. Lipid panel revealed elevated cholesterol and elevated LDL. Antiplatelet therapy with Plavix and statin were continued. Blood pressure was managed with beta-janeth and remained stable Patient initially was given 500 mL of fluids. Renal parameters and electrolytes were closely monitored, electrolytes remained stable, nephrotoxins were avoided. TSH within normal limits. Placement was arranged to [facility]. Family was in agreement. Patient subsequently was transferred to fpc facility for continuation of care. FINAL DIAGNOSES: Syncopal episode Mild rhabdomyolysis History of hypertension now normotensive Mild chronic kidney disease ,stage II Borderline diabetes ,diet controlled Hyperlipidemia Mild dementia Sleep apnea not on treatment Morbid obesity Osteoarthritis History of stroke with left-sided weakness DISCHARGE MEDICATIONS: See Medication Reconciliation list. DISCHARGE INSTRUCTIONS: Patient was discharged to the fpc facility. Follow up with medical doctor at the facility. I have been assigned to dictate discharge summary for this account. I was not involved in the patient's management. Dora Graves NP Nov 16, 2018 14:56
--- NOTE | 2018-11-26 17:27 | Physician Query ---
--------- THIS DOCUMENT IS A PERMANENT PART OF THE MEDICAL RECORD --------- PLEASE COMPLETE THE DOCUMENT BEFORE SIGNING Dear Dr. GREGORIO Date:11/26/18 Park Keeper/CDS Name: JAKY CHRISTENSEN, CCS, [employer] Exercise your independent professional judgment when responding to query. Question asked do not imply a particular answer is desired/expected "Syncope" HOSPITAL COURSE: Patient admitted to telemetry floor. Troponin was negative. Echocardiogram revealed preserved ejection fraction of 55-60%. No evidence of left ventricular hypertrophy. No evidence of wall motion abnormality. Grade 1 diastolic dysfunction. Right ventricular systolic pressure of 35. Carotid duplex was unremarkable. Lipid panel revealed elevated cholesterol and elevated LDL. Antiplatelet therapy with Plavix and statin were continued. Blood pressure was managed with beta-janeth and remained stable Patient initially was given 500 mL of fluids. Renal parameters and electrolytes were closely monitored, electrolytes remained stable, nephrotoxins were avoided. TSH within normal limits. Placement was arranged to [facility]. Family was in agreement. Patient subsequently was transferred to longterm facility for continuation of care. FINAL DIAGNOSES: Syncopal episode,Mild rhabdomyolysis,History of hypertension now normotensive Mild chronic kidney disease ,stage II,Borderline diabetes ,diet controlled Hyperlipidemia,Mild dementia,Sleep apnea not on treatment,Morbid obesity Osteoarthritis,History of stroke with left-sided weakness Please specify the cause or underlying condition of syncope: [] Orthostatic Hypotension [] Psychogenic [] Shock [] Dehydration [] Dialysis Disequilibrium Syndrome [] Heat [x] Other: ___vasovagal [] Unable to determine RADHA GREGORIO M.D. [facility]
== END 2018-11-15 14:52 | DRG 312 ==
LOC: EDBD 13:04 → EMR 13:22 → 2E 13:38 → EDBEDREQ 15:15 → 2E 16:09
DX: R55 Syncope and collapse (principal); M62.82 Rhabdomyolysis; I69.354 Hemiplegia and hemiparesis following cerebral infarction affecting left non-dominant side; I12.9 Hypertensive chronic kidney disease with stage 1 through stage 4 chronic kidney disease, or unspecified chronic kidney disease; N18.2 Chronic kidney disease, stage 2 (mild); Z79.02 Long term (current) use of antithrombotics/antiplatelets; Z87.891 Personal history of nicotine dependence; R73.03 Prediabetes; F03.90 Unspecified dementia, unspecified severity, without behavioral disturbance, psychotic disturbance, mood disturbance, and anxiety; M19.90 Unspecified osteoarthritis, unspecified site; E78.5 Hyperlipidemia, unspecified; E66.01 Morbid (severe) obesity due to excess calories
CPT/HCPCS: 36415; 70450; 71045; 72170; 80048; 80053; 80061; 81003; 82248; 82550; 82553; 82962; 83690; 83880; 84153; 84443; 84484; 85025; 85610; 85730; 87040; 93005; 93306; 93880; 99285

== ENCOUNTER 2020-08-20 14:34 | Emergency (ER) | payer OTHER ==
[~2020-08-20] VITALS: Ht 175.3 cm; Wt 104.3 kg
[2020-08-20] MEDS ORDERED: PLAVIX75 MG ORAL (14:41)
[2020-08-20] MEDS ORDERED: NAMENDA10 MG ORAL (14:41)
[2020-08-20] MEDS ORDERED: PRAVASTATIN SOD20 M1 ORAL (14:41)
--- NOTE | 2020-08-20 14:53 | Emergency Room Report ---
History of Present Illness General Chief Complaint: Syncope Source: Patient Present Illness HPI Paramedics were called as this patient was found on the floor by his accounting advisory services manager. It is unknown how long he was down. He cannot say whether he was on the floor since yesterday or last night. He also questions whether he was on the floor. Patient was last admitted for syncope in November 2018. Discharge diagnoses: Syncopal episode Mild rhabdomyolysis History of hypertension now normotensive Mild chronic kidney disease ,stage II Borderline diabetes ,diet controlled Hyperlipidemia Mild dementia Sleep apnea not on treatment Morbid obesity Osteoarthritis History of stroke with left-sided weakness Allergies: Coded Allergies: No Known Allergies (Unverified , 11/12/18) COVID-19 Screening Contact w/high risk pt: No Experienced COVID-19 symptoms?: No COVID-19 Testing performed CHANNEL CEMENTER: No Patient History Limited by: medical condition Past Medical History: see triage record, old chart reviewed Social History: Reports: smoking - Not currently Social History Narrative Lives by himself in an apartment has a caregiver Reviewed Nursing Documentation: PMH: Agreed; PSxH: Agreed Nursing Documentation-PMH Past Medical History: No History, Except For Hx Cardiac Problems: Yes Hx Hypertension: Yes Hx Diabetes: Yes Hx Cancer: No Hx Gastrointestinal Problems: No History Of Psychiatric Problem: Yes - dementia Hx Neurological Problems: Yes Hx Cerebrovascular Accident: Yes Review of Systems All Other Systems: limited Physical Exam Vital Signs Date Time Temp Pulse Resp B/P (MAP) Pulse Ox O2 Delivery O2 Flow Rate FiO2 08/20/20 14:35 98.8 84 17 117/74 (88) 94 Room Air Sp02 EP Interpretation: reviewed, abnormal - Slightly low General Appearance: well appearing, no apparent distress, other - Does not remember what happened to him does not remember that he was on the floor Eyes: left eye other - Lid laxity; bilateral eye PERRL ENT: normal pharynx, moist mucus membranes Neck: full range of motion, supple Respiratory: chest non-tender, lungs clear, normal breath sounds Cardiovascular #1: regular rate, rhythm Cardiovascular #2: 2+ radial (L) Gastrointestinal: non tender, soft, other - Umbilical hernia, overweight Genitourinary: no CVA tenderness Musculoskeletal: back normal, other - MCP joint enlargement Neurologic: oriented - X2, other - Fine tremor bilaterally no drift, left facial weakness Psychiatric: mood/affect normal - Poor recent memory Skin: no rash, warm/dry Medical Decision Making Diagnostic Impression: Primary Impression: Syncope Qualified Codes: R55 - Syncope and collapse Additional Impressions: Encephalopathy Elevated CPK Status post stroke COVID-19 virus detected ER Course Patient presents after being found on the floor for unknown period of time. Differential includes syncope, weakness, rhabdomyolysis, acute myocardial infarction, stroke amongst others. Patient evaluated with EKG, chest x-ray, CT of the head and labs. Patient unable to recall recent events and unable to state what type of medical problems he has or medications he is on. Patient placed on a director of cardiac cath lab. Patient given IV hydration. Patient denies pain at this time. As the patient does not have any recall of recent events he will need to be admitted to the hospital as it is questionable whether he is stable to be living on his own at this time. EKG normal sinus rhythm with pulmonary disease pattern with left anterior fascicular block nonspecific ST-T wave changes. Chest x-ray with poor inspiration. CT no acute process. Labs with normal CBC. Elevated BUN. CPK 1098. Patient still with poor recent memory. No acute distress at this time but needs both observation for possible syncope and also consideration for placement. Discussed with Dr. Sherwood. Patient stable for transfer to a monitored bed. Called COVID + result. Laboratory Tests Test 08/20/20 14:38 08/20/20 15:10 08/20/20 16:11 Sodium Level 142 MMOL/L (136-145) Potassium Level 3.9 MMOL/L (3.5-5.1) Chloride Level 106 MMOL/L (98-107) Carbon Dioxide Level 25 MMOL/L (21-32) Anion Gap 12 mmol/L (5-15) Blood Urea Nitrogen 26 mg/dL (7-18) H Creatinine 1.2 MG/DL (0.55-1.30) Estimated Glomerular Filtration Rate 57.5 mL/min (>60) Glucose Level 103 MG/DL (74-106) Calcium Level 8.3 MG/DL (8.5-10.1) L Magnesium Level 2.0 MG/DL (1.8-2.4) Ferritin 819 NG/ML (8-388) H Total Bilirubin 1.1 MG/DL (0.2-1.0) H Direct Bilirubin 0.3 MG/DL (0.0-0.3) Aspartate Amino Transferase (AST) 71 U/L (15-37) H Alanine Aminotransferase (ALT) 23 U/L (12-78) Alkaline Phosphatase 67 U/L (46-116) Lactate Dehydrogenase 305 U/L (81-234) H Total Creatine Kinase 1098 U/L (26-308) H C-Reactive Protein, Quantitative 7.4 mg/dL (0.00-0.90) H Pro-B-Type Natriuretic Peptide 832 pg/mL (0-125) H Total Protein 7.2 G/DL (6.4-8.2) Albumin 3.3 G/DL (3.4-5.0) L Globulin 3.9 g/dL Albumin/Globulin Ratio 0.8 (1.0-2.7) L Lipase 213 U/L (73-393) White Blood Count 6.7 K/UL (4.8-10.8) Red Blood Count 3.91 M/UL (4.70-6.10) L Hemoglobin 12.7 G/DL (14.2-18.0) L Hematocrit 36.1 % (42.0-52.0) L Mean Corpuscular Volume 92 FL (80-99) Mean Corpuscular Hemoglobin 32.5 PG (27.0-31.0) H Mean Corpuscular Hemoglobin Concent 35.2 G/DL (32.0-36.0) Red Cell Distribution Width 13.0 % (11.6-14.8) Platelet Count 225 K/UL (150-450) Mean Platelet Volume 5.5 FL (6.5-10.1) L Neutrophils (%) (Auto) 83.3 % (45.0-75.0) H Lymphocytes (%) (Auto) 10.2 % (20.0-45.0) L Monocytes (%) (Auto) 5.8 % (1.0-10.0) Eosinophils (%) (Auto) 0.0 % (0.0-3.0) Basophils (%) (Auto) 0.6 % (0.0-2.0) Prothrombin Time 10.7 SEC (9.30-11.50) Prothrombin Time INR 1.0 (0.9-1.1) Activated Partial Thromboplast Time 30 SEC (23-33) D-Dimer 1.47 mg/L FEU (0.00-0.49) H Lactic Acid Level 1.70 mmol/L (0.4-2.0) Troponin I 0.022 ng/mL (0.000-0.056) Urine Color Yellow Urine Appearance Clear Urine pH 5 (4.5-8.0) Urine Specific [place] 1.020 (1.005-1.035) Urine Protein 3+ (NEGATIVE) H Urine Glucose (UA) Negative (NEGATIVE) Urine Ketones 3+ (NEGATIVE) H Urine Blood 3+ (NEGATIVE) H Urine Nitrite Negative (NEGATIVE) Urine Bilirubin Negative (NEGATIVE) Urine Urobilinogen Normal MG/DL (0.0-1.0) Urine Leukocyte Esterase Negative (NEGATIVE) Urine RBC 0-2 /HPF (0 - 0) H Urine WBC 0 /HPF (0 - 0) Urine Squamous Epithelial Cells None /LPF (NONE/OCC) Urine Bacteria Occasional /HPF (NONE) EKG Diagnostic Results Rate: normal Rhythm: NSR ST Segments: no acute changes - LASH Nonspecific ST-T wave changes Rhythm Strip Diag. Results EP Interpretation: yes Rhythm: NSR, no PVC's, no ectopy Chest X-Ray Diagnostic Results Chest X-Ray Diagnostic Results : Chest X-Ray Ordered: Yes # of Views/Limited/Complete: 1 View Indication: Other EP Interpretation: Yes Interpretation: no effusion, no pneumothorax, other - poor inspiration Impression: No acute disease Electronically Signed by: Electronically signed by Jg Azul MD CT/MRI/US Diagnostic Results CT/MRI/US Diagnostic Results : Imaging Test Ordered: head Impression no acute process Last Vital Signs Date Time Temp Pulse Resp B/P (MAP) Pulse Ox O2 Delivery O2 Flow Rate FiO2 08/20/20 20:16 98.9 76 18 139/79 95 Room Air Status: improved Disposition: SHORT-TERM HOSP Condition: Serious Jg Azul MD Aug 20, 2020 14:53
--- NOTE | 2020-08-20 15:23 | Diagnostic Imaging Report ---
Indication: Syncope Technique: XRAY Chest 1v Comparison: 11/12/2018 Findings: Lung volumes are low. There is streaky opacities at the bases and pulmonary vascular prominence. Some patchy opacities suggested in the right upper lobe. Aorta is calcified and tortuous. There is no pleural effusion or pneumothorax. There are degenerative changes spine and shoulders.. Impression: Limited examination of lung volumes. Streaky basilar opacities may be related to dependent/expiratory-type changes. Right perihilar and suprahilar opacities, possibly exaggerated due to low lung volumes. Correlate clinically to exclude developing pneumonia and effusions.
[2020-08-20 15:52] LABS: ANION GAP 12 mmol/L (5-15); BLOOD UREA NITROGEN 26 mg/dL (7-18); CALCIUM 8.3 MG/DL (8.5-10.1); CARBON DIOXIDE 25 MMOL/L (21-32); CHLORIDE 106 MMOL/L (98-107); CREATININE 1.2 MG/DL (0.55-1.30); POTASSIUM 3.9 MMOL/L (3.5-5.1); SODIUM 142 MMOL/L (136-145)
[2020-08-20 15:58] LABS: BASOPHILS % (AUTO) 0.6 % (0.0-2.0); HEMATOCRIT 36.1 % (42.0-52.0); HEMOGLOBIN 12.7 G/DL (14.2-18.0); LYMPHOCYTES % (AUTO) 10.2 % (20.0-45.0); MEAN CORPUSCULAR VOLUME 92 FL (80-99); MONOCYTES % (AUTO) 5.8 % (1.0-10.0); NEUTROPHILS % (AUTO) 83.3 % (45.0-75.0); PLATELET COUNT 225 K/UL (150-450); RED BLOOD COUNT 3.91 M/UL (4.70-6.10); WHITE BLOOD COUNT 6.7 K/UL (4.8-10.8)
[2020-08-20 16:03] VITALS: BP 117/74
[2020-08-20 16:09] LABS: ALANINE AMINOTRANSFERASE 23 U/L (12-78); ALBUMIN 3.3 G/DL (3.4-5.0); ALBUMIN/GLOBULIN RATIO 0.8 (1.0-2.7); ALKALINE PHOSPHATASE 67 U/L (46-116); ASPARTATE AMINO TRANSFERASE 71 U/L (15-37); BILIRUBIN,TOTAL 1.1 MG/DL (0.2-1.0); CREATINE KINASE 1098 U/L (26-308); FERRITIN 819 NG/ML (8-388); LACTATE DEHYDROGENASE 305 U/L (81-234)
[2020-08-20 16:12] LABS: BILIRUBIN,DIRECT 0.3 MG/DL (0.0-0.3)
--- NOTE | 2020-08-20 16:29 | Diagnostic Imaging Report ---
CT HEAD WITHOUT CONTRAST INDICATION: Reason For Exam: SYNCOPE Technique: Continuous helical CT scanning of the head was performed without intravenous contrast material. Axial and coronal 5 mm sections were generated. Radiation dose was minimized using automated exposure control DOSE: Total Dose Length Product - DLP [address] Dose Index - CTDIvol(s) 53.4 mGy. COMPARISON: CT head dated 11/12/2018 FINDINGS: There is no acute intracranial hemorrhage, mass effect or cortical edema. There are patchy subcortical and periventricular white matter hypodensities, which are nonspecific but often associated with chronic ischemic microvascular disease. Mild to moderate cortical cerebral volume loss with associated commensurate dilatation of ventricular system. No hydrocephalus. Mastoid air cells are clear. There is a large mucus retention cyst in the left sphenoid sinus. There is mild to moderate multifocal ethmoid air cell mucosal thickening. There is mild bilateral maxillary sinus mucosal thickening. No focal lesions of the bony calvarium or soft tissues of the scalp are seen. IMPRESSION: 1. No evidence of acute intracranial hemorrhage, mass effect or cortical edema. MRI may be obtained for more sensitive evaluation as clinically indicated. 2. Sinus disease as described above. The CT scanner at [facility] is accredited by the [employer] and the scans are performed using protocols designed to limit radiation exposure to as low as reasonably achievable to attain images of sufficient resolution adequate for diagnostic evaluation.
[2020-08-20 16:52] LABS: APPEARANCE,URINE CLEAR; BILIRUBIN, URINE NEGATIVE (NEGATIVE); COLOR,URINE YELLOW; GLUCOSE, URINE (UA) NEGATIVE (NEGATIVE); KETONES,URINE 3+ (NEGATIVE); LEUKOCYTE ESTERASE ,URINE NEGATIVE (NEGATIVE); NITRITE,URINE NEGATIVE (NEGATIVE); PH,URINE 5 (4.5-8.0); PROTEIN,URINE 3+ (NEGATIVE); UROBILINOGEN,URINE NORMAL MG/DL (0.0-1.0)
[2020-08-20 17:50] VITALS: BP 118/73
[2020-08-20 19:11] VITALS: BP 126/82
[2020-08-20 20:16] VITALS: BP 139/79
== END 2020-08-20 20:16 | disposition short-term general hospital (02) ==
LOC: EDBD 14:34 → EDUNIT# 14:34 → EMR 14:55
DX: U07.1 COVID-19 (principal); R55 Syncope and collapse; G93.40 Encephalopathy, unspecified; R74.8 Abnormal levels of other serum enzymes; I11.9 Hypertensive heart disease without heart failure; E11.9 Type 2 diabetes mellitus without complications; F03.90 Unspecified dementia, unspecified severity, without behavioral disturbance, psychotic disturbance, mood disturbance, and anxiety; E78.5 Hyperlipidemia, unspecified; M19.90 Unspecified osteoarthritis, unspecified site; G47.30 Sleep apnea, unspecified; E66.01 Morbid (severe) obesity due to excess calories; Z86.73 Personal history of transient ischemic attack (TIA), and cerebral infarction without residual deficits; Z68.33 Body mass index [BMI] 33.0-33.9, adult; Z79.01 Long term (current) use of anticoagulants
CPT/HCPCS: 36415; 70450; 71045; 80053; 81003; 82248; 82550; 82728; 83605; 83615; 83690; 83735; 83880; 84484; 85025; 85379; 85610; 85730; 86140; 93005; 96360; 96361; 99285; U0002